=== PATIENT | female | born 1945 | race Two or more races ===

== ENCOUNTER → 2020-06-21 08:08 | Outpatient (BNVA) | payer OTHER, SELFPAY | PROVIDERS: PCP Internal Medicine; Visit Provider Internal Medicine | DX: Z13.89 Encounter for screening for other disorder (principal) | CPT/HCPCS: Q3014 ==

== ENCOUNTER 2020-06-24 10:30 | Outpatient (REF) | payer MEDICARE, SELFPAY ==
[2020-06-24 12:17] LABS: Alanine Aminotransferase 30 U/L (0-31); Albumin Level 4.1 g/dL (3.5-5.0); Alkaline Phosphatase 68 U/L (39-117); Anion Gap 11 (12-20); Aspartate Amino Transferase 34 U/L (5-31); Bilirubin Total 0.7 mg/dL (0.0-1.0); Blood Urea Nitrogen 12 mg/dL (9-16); Calcium 9.3 mg/dL (8.4-10.2); Carbon Dioxide 29 mmol/L (22-29); Chloride 106 mmol/L (96-108); Estimated Glomerular Filt Rate 55; Glucose Random 96 mg/dL (60-115); Phosphorus 3.5 mg/dL (2.7-4.5); Potassium 3.8 mmol/L (3.3-5.1); Sodium 142 mmol/L (135-145); Total Protein 6.9 g/dL (6.5-8.0)
[2020-06-24 12:41] LABS: Free T4 (Free Thyroxine) 0.85 ng/dL (0.71-1.85); Thyroid Stimulating Hormone 1.47 uIU/mL (0.32-4.0); Vitamin D 25-OH Total 40.1 ng/mL (>30)
[2020-06-25 21:52] LABS: Prot Elec - Albumin 3.8 g/dL (3.8-4.8); Prot Elec - Alpha1 0.3 g/dL (0.2-0.3); Prot Elec - Alpha2 0.8 g/dL (0.5-0.9); Prot Elec - Beta 1 0.4 g/dL (0.4-0.6); Prot Elec - Beta 2 0.4 g/dL (0.2-0.5); Prot Elec - Gamma 1.1 g/dL (0.8-1.7); Prot Elec - Total Protein 6.8 g/dL (6.1-8.1)
[2020-06-26 09:36] LABS: Calcium (PTHI) 9.3 mg/dL (8.6-10.4); PTHI 50 pg/mL (14-64)
[2020-06-28 10:22] LABS: Alkaline Phosphatase Bone 8.7 mcg/L (5.6-29.0)
[2020-06-28 12:21] LABS: Calcium, Ionized 4.9 mg/dL (4.8-5.6)
[2020-06-30 06:37] LABS: N-Telopeptide 35 (see note); NTXCreaRU 100 mg/dL (20-275)
== END 2020-06-24 10:31 | disposition home or self-care (01) ==
LOC: HO.LAB 10:30
PROVIDERS: PCP Internal Medicine; Visit Provider Internal Medicine
DX: M81.0 Age-related osteoporosis without current pathological fracture (principal); E55.9 Vitamin D deficiency, unspecified
CPT/HCPCS: 36415; 80053; 82306; 82330; 82523; 83970; 84075; 84100; 84155; 84165; 84439; 84443

== ENCOUNTER 2020-06-30 12:48 | Outpatient (REF) | payer MEDICARE, SELFPAY ==
[2020-06-30 13:44] LABS: Creatinine, mg/dL 89.19
[2020-06-30 14:35] LABS: Creatinine, 24Hr Urine 0.3 G/Day (1.0-2.0); Total Volume 24 Hour Urine 350 mL
[2020-07-01 17:47] LABS: Calcium, 24 Hr Urine 12 mg/24 h; Calcium/Creatinine Ratio 38 mg/g creat (30-275); Creatinine 24Hr Urine 0.31 g/24 h (0.50-2.15)
== END 2020-06-30 12:49 | disposition home or self-care (01) ==
LOC: HO.LNP 12:48
PROVIDERS: Visit Provider Internal Medicine
DX: M81.0 Age-related osteoporosis without current pathological fracture (principal)
CPT/HCPCS: 82340; 82570

== ENCOUNTER → 2020-10-06 08:14 | Outpatient (BNVA) | payer MEDICARE, SELFPAY | PROVIDERS: PCP Internal Medicine; Visit Provider Internal Medicine | DX: M81.0 Age-related osteoporosis without current pathological fracture (principal); E55.9 Vitamin D deficiency, unspecified | CPT/HCPCS: Q3014 ==

== ENCOUNTER 2020-12-10 13:31 | Outpatient (REF) | payer MEDICARE, SELFPAY ==
--- NOTE | ~2020-12-10 | XR_ITS ---
EXAMINATION: XR HIP-LEFT XR SPINE-LUMBOSACRAL CLINICAL INFORMATION: Left hip trochanteric bursitis. Radiculopathy. COMPARISON: None TECHNIQUE: 2 views of the left hip and 2 views, 3 images of the lumbosacral spine were obtained. FINDINGS: Left hip: The bony alignments are intact. The cortices are intact. Articular margins, joint space appear unremarkable. Basically, the trochanteric surface appears unremarkable. No evidence of any abnormal soft tissue calcification or erosion is seen. With phleboliths are seen in the pelvis. Lumbosacral spine: There are 5 nonrib-bearing lumbar vertebrae present. Significant decrease joint space, subchondral sclerosis, osteophyte formations, consistent with moderate-severe spondylosis related changes are noted at L5-S1. The remainder of the intervertebral disc space appear well-maintained. The posterior appendages are intact. The paraspinal soft tissues are unremarkable. XR/XR hip LT min 2V IMPRESSION: 1. Unremarkable radiographic appearance of the left hip including the left greater trochanter. Specifically, no radiographic evidence of any osseous erosion or soft tissue calcification identified overlying the greater trochanteric region. 2. Abnormal radiographic appearance of the lumbosacral spine showing evidence of moderate to severe spondylosis at L5-S1.
--- NOTE | ~2020-12-10 | XR_ITS ---
EXAMINATION: XR HIP-LEFT XR SPINE-LUMBOSACRAL CLINICAL INFORMATION: Left hip trochanteric bursitis. Radiculopathy. COMPARISON: None TECHNIQUE: 2 views of the left hip and 2 views, 3 images of the lumbosacral spine were obtained. FINDINGS: Left hip: The bony alignments are intact. The cortices are intact. Articular margins, joint space appear unremarkable. Basically, the trochanteric surface appears unremarkable. No evidence of any abnormal soft tissue calcification or erosion is seen. With phleboliths are seen in the pelvis. Lumbosacral spine: There are 5 nonrib-bearing lumbar vertebrae present. Significant decrease joint space, subchondral sclerosis, osteophyte formations, consistent with moderate-severe spondylosis related changes are noted at L5-S1. The remainder of the intervertebral disc space appear well-maintained. The posterior appendages are intact. The paraspinal soft tissues are unremarkable. XR/XR lumbar spine 2-3V IMPRESSION: 1. Unremarkable radiographic appearance of the left hip including the left greater trochanter. Specifically, no radiographic evidence of any osseous erosion or soft tissue calcification identified overlying the greater trochanteric region. 2. Abnormal radiographic appearance of the lumbosacral spine showing evidence of moderate to severe spondylosis at L5-S1.
== END 2020-12-10 13:32 | disposition home or self-care (01) ==
LOC: HO.XRAY 13:31
PROVIDERS: PCP Internal Medicine; Visit Provider Internal Medicine
DX: M54.10 Radiculopathy, site unspecified (principal); M70.62 Trochanteric bursitis, left hip
CPT/HCPCS: 72100; 73502

== ENCOUNTER 2021-05-02 09:40 | Outpatient (REF) | payer OTHER, SELFPAY ==
[2021-05-02 11:35] LABS: Alanine Aminotransferase 23 U/L (0-31); Alkaline Phosphatase 54 U/L (39-117); Anion Gap 13 (12-20); Aspartate Amino Transferase 27 U/L (5-31); Bilirubin Total 0.5 mg/dL (0.0-1.0); Blood Urea Nitrogen 13 mg/dL (9-16); Calcium 9.4 mg/dL (8.4-10.2); Carbon Dioxide 28 mmol/L (22-29); Chloride 105 mmol/L (96-108); Estimated Glomerular Filt Rate 52; Glucose Random 169 mg/dL (60-115); Phosphorus 3.6 mg/dL (2.7-4.5); Potassium 3.8 mmol/L (3.3-5.1); Sodium 142 mmol/L (135-145); Total Protein 7.1 g/dL (6.5-8.0)
[2021-05-02 11:43] LABS: Vitamin D 25-OH Total 49.9 ng/mL (>30)
[2021-05-03 14:41] LABS: Calcium (PTHI) 9.2 mg/dL (8.6-10.4); PTHI 56 pg/mL (16-77)
[2021-05-04 08:12] LABS: Calcium, Ionized 4.8 mg/dL (4.8-5.6)
[2021-05-05 18:22] LABS: N-Telopeptide 18 (see note); NTXCreaRU 122 mg/dL (20-275)
== END 2021-05-02 09:41 | disposition home or self-care (01) ==
LOC: HO.LAB 09:40
PROVIDERS: PCP Internal Medicine; Visit Provider Internal Medicine
DX: M81.0 Age-related osteoporosis without current pathological fracture (principal); E55.9 Vitamin D deficiency, unspecified
CPT/HCPCS: 36415; 80053; 82306; 82330; 82523; 83970; 84100

== ENCOUNTER → 2021-05-04 09:27 | Outpatient (BNVA) | payer OTHER, SELFPAY | PROVIDERS: PCP Internal Medicine; Visit Provider Internal Medicine | DX: M81.0 Age-related osteoporosis without current pathological fracture (principal); E55.9 Vitamin D deficiency, unspecified | CPT/HCPCS: Q3014 ==

== ENCOUNTER 2021-06-15 13:39 | Outpatient (REF) | payer OTHER, SELFPAY ==
--- NOTE | ~2021-06-15 | MM_ITS ---
EXAMINATION: MM SCREENING DIGITAL BREAST TOMOSYNTHESIS, BILATERAL CLINICAL INFORMATION: Screening. Asymptomatic. Lumpectomy for right breast cancer, 2007. COMPARISON: Outside mammography: 03/23/2020, 10/02/2017, 02/13/2017 ([facility]). TECHNIQUE: Digital breast tomosynthesis is performed in both the craniocaudal and mediolateral oblique views along with computer-aided detection (CAD). Synthesized 2D images are generated from the tomosynthesis. Additional right MLO view is provided. FINDINGS: The breasts are heterogeneously dense, which may obscure small masses (ACR BI-RADS breast composition Category c). Post therapy changes right breast are again present with mild reduced breast size and surgical clips posterior medial breast and right axilla. The parenchymal pattern is similar to outside studies and there is no interval mass or architectural abnormality or abnormal calcifications. Scattered bilateral vascular and some round calcifications are present. Skin contours are smooth. There are no significant changes from outside studies. MM/MM tomosynthesis screening BI IMPRESSION: -No mammographic evidence of malignancy. -Post therapy changes right breast. ASSESSMENT: BI-RADS 2: Benign RECOMMENDATION: Routine annual mammography screening. This patient's information was entered into a reminder system with a target due date for their next mammogram.
== END 2021-06-15 13:40 | disposition home or self-care (01) ==
LOC: HO.MAMMO 13:39
PROVIDERS: PCP Internal Medicine; Visit Provider Internal Medicine
DX: Z12.31 Encounter for screening mammogram for malignant neoplasm of breast (principal)
CPT/HCPCS: 77063; 77067

== ENCOUNTER 2021-09-01 10:09 | Outpatient (REF) | payer OTHER, SELFPAY ==
[2021-09-01 11:36] LABS: Alanine Aminotransferase 22 U/L (0-31); Albumin Level 4.2 g/dL (3.5-5.0); Alkaline Phosphatase 71 U/L (39-117); Anion Gap 13 (12-20); Aspartate Amino Transferase 21 U/L (5-31); Bilirubin Total 0.4 mg/dL (0.0-1.0); Blood Urea Nitrogen 15 mg/dL (9-16); Calcium 9.2 mg/dL (8.4-10.2); Carbon Dioxide 27 mmol/L (22-29); Chloride 106 mmol/L (96-108); Estimated Glomerular Filt Rate 52; Glucose Random 101 mg/dL (60-115); Phosphorus 3.6 mg/dL (2.7-4.5); Potassium 3.9 mmol/L (3.3-5.1); Sodium 142 mmol/L (135-145); Total Protein 7.6 g/dL (6.5-8.0)
[2021-09-01 11:46] LABS: Vitamin D 25-OH Total 46.9 ng/mL (>30)
[2021-09-04 13:06] LABS: Calcium (PTHI) 9.1 mg/dL (8.6-10.4); PTHI 83 pg/mL (16-77)
[2021-09-09 20:32] LABS: N-Telopeptide 30 (see note); NTXCreaRU 99 mg/dL (20-275)
== END 2021-09-01 10:10 | disposition home or self-care (01) ==
LOC: HO.LAB 10:09
PROVIDERS: PCP Internal Medicine; Visit Provider Internal Medicine
DX: M81.0 Age-related osteoporosis without current pathological fracture (principal); E55.9 Vitamin D deficiency, unspecified
CPT/HCPCS: 36415; 80053; 82306; 82523; 83970; 84100

== ENCOUNTER → 2021-09-07 10:52 | Outpatient (BNVA) | payer OTHER, SELFPAY | PROVIDERS: PCP Internal Medicine; Visit Provider Internal Medicine | DX: M81.0 Age-related osteoporosis without current pathological fracture (principal) | CPT/HCPCS: 96372 ==

== ENCOUNTER → 2022-01-12 13:45 | Outpatient (BNVA) | payer OTHER, SELFPAY | PROVIDERS: PCP Internal Medicine; Visit Provider Internal Medicine | DX: M81.0 Age-related osteoporosis without current pathological fracture (principal); E55.9 Vitamin D deficiency, unspecified; K21.9 Gastro-esophageal reflux disease without esophagitis | CPT/HCPCS: 99212 ==

== ENCOUNTER 2022-03-22 10:33 | Outpatient (REF) | payer OTHER, SELFPAY ==
[2022-03-22 12:40] LABS: Alanine Aminotransferase 18 U/L (0-31); Alkaline Phosphatase 62 U/L (39-117); Anion Gap 13 (12-20); Aspartate Amino Transferase 20 U/L (5-31); Bilirubin Total 0.5 mg/dL (0.0-1.0); Blood Urea Nitrogen 21 mg/dL (9-16); Calcium 9.6 mg/dL (8.4-10.2); Carbon Dioxide 29 mmol/L (22-29); Chloride 108 mmol/L (96-108); Estimated Glomerular Filt Rate 41; Glucose Random 106 mg/dL (60-115); Phosphorus 4.2 mg/dL (2.7-4.5); Potassium 4.2 mmol/L (3.3-5.1); Sodium 146 mmol/L (135-145)
[2022-03-22 12:57] LABS: Vitamin D 25-OH Total 48.4 ng/mL (>30)
[2022-03-23 14:59] LABS: Calcium (PTHI) 9.9 mg/dL (8.6-10.4); PTHI 60 pg/mL (16-77)
== END 2022-03-22 10:34 | disposition home or self-care (01) ==
LOC: HO.LAB 10:33
PROVIDERS: PCP Internal Medicine; Visit Provider Internal Medicine
DX: E55.9 Vitamin D deficiency, unspecified (principal); M81.0 Age-related osteoporosis without current pathological fracture
CPT/HCPCS: 36415; 80053; 82306; 83970; 84100

== ENCOUNTER 2022-03-24 11:50 | Outpatient (REF) | payer OTHER, SELFPAY ==
[2022-03-24 13:03] LABS: Estimated Glomerular Filt Rate 46; Sodium 142 mmol/L (135-145)
[2022-03-27 14:14] LABS: Calcium (PTHI) 9.5 mg/dL (8.6-10.4); PTHI 20 pg/mL (16-77)
== END 2022-03-24 11:51 | disposition home or self-care (01) ==
LOC: HO.LAB 11:50
PROVIDERS: PCP Internal Medicine; Visit Provider Internal Medicine
DX: M81.0 Age-related osteoporosis without current pathological fracture (principal)
CPT/HCPCS: 36415; 82565; 83970; 84295

== ENCOUNTER → 2022-03-29 11:55 | Outpatient (BNVA) | payer OTHER, SELFPAY | PROVIDERS: PCP Internal Medicine; Visit Provider Internal Medicine | DX: M81.0 Age-related osteoporosis without current pathological fracture (principal) | CPT/HCPCS: 96372 ==

== ENCOUNTER 2022-04-19 15:54 | Outpatient (REF) | payer OTHER, SELFPAY ==
--- NOTE | ~2022-04-19 | XR_ITS ---
EXAMINATION: XR LUMBOSACRAL SPINE CLINICAL INFORMATION: Color-flow COMPARISON: None available. TECHNIQUE: Three views of the lumbosacral spine. FINDINGS: There are 5 nonrib-bearing lumbar vertebral bodies. Bones are osteopenic. There is ossification of the vertebral body heights. Degenerative disc disease is noted at L5-S1. No spondylolisthesis. Soft tissue structures are within normal limits. XR/XR lumbar spine 2-3V IMPRESSION: Degenerative disc disease at L5-S1.
== END 2022-04-19 15:55 | disposition home or self-care (01) ==
LOC: HO.XRAY 15:54
PROVIDERS: Absent Provider Internal Medicine; PCP Internal Medicine; Visit Provider General Practice
DX: M54.50 Low back pain, unspecified (principal); Z91.81 History of falling
CPT/HCPCS: 72100

== ENCOUNTER 2022-04-24 12:30 | Outpatient (REF) | payer OTHER, SELFPAY ==
--- NOTE | ~2022-04-24 | XR_ITS ---
EXAMINATION: XR KNEE, LEFT CLINICAL INFORMATION: Left knee pain. COMPARISON: None available. TECHNIQUE: Four views of the left knee. FINDINGS: Bones and soft tissues are normal. No fracture or joint effusion. Alignment is anatomic. Joint spaces are well maintained. No abnormal soft tissue calcification. XR/XR knee LT 4V IMPRESSION: Unremarkable left knee.
== END 2022-04-24 12:31 | disposition home or self-care (01) ==
LOC: HO.XRAY 12:30
PROVIDERS: PCP Internal Medicine; Visit Provider General Practice
DX: M79.605 Pain in left leg (principal)
CPT/HCPCS: 73564